=== PATIENT | female | born 1975 | race Caucasian/White ===

== ENCOUNTER 2020-04-05 05:39 | Outpatient (CLI) | payer OTHER, SELFPAY ==
[2020-04-05 18:35] LABS: SARS-CoV-2 RNA PCR Negative
== END 2020-04-05 05:40 | disposition home or self-care (01) ==
LOC: ANHCOVIDDT 05:40
PROVIDERS: Visit Provider Surgery Plastic and Reconstructive Surgery
DX: Z01.818 Encounter for other preprocedural examination (principal); Z11.59 Encounter for screening for other viral diseases
CPT/HCPCS: 87635; U0003

== ENCOUNTER 2020-04-08 01:04 | Day surgery (SDC) | payer OTHER, SELFPAY ==
[2020-04-05 15:53] VITALS: BMI 22.3
[2020-04-08] VITALS (9 sets, daily range): BP systolic 107–149; BP diastolic 57–83; PULSE 80–105; RESP 15–20; TEMP 36.2–37.2; O2SAT 96–100
[2020-04-08] MEDS: LACTATED RINGERS 1,000 ML 30 ML IV CONT ×2 (09:35→13:18)
--- NOTE | 2020-04-08 09:36 | WPDANESEPPF ---
Anes - Initial Pre Proc Eval Procedure: Operation Date: 04/08/20 11:30 Proposed Procedures p Bilateral Breast Implant Exchange With Capsulectomy - Shan Campuzano MD Date/Time: 04/08/20 09:36 Surgeon: Shan Campuzano MD Pre Op Diagnosis: Hx Breast Augmentation Patient Data Age: 44 Gender: F Height: 5 ft 4 in Weight: 59 kg Allergies Allergy/AdvReac Type Severity Reaction Status Date / Time No Known Allergies Allergy Mild Verified 04/05/20 15:47 Home Medications Medication Instructions Recorded Confirmed Type carisoprodol 350 mg tablet 350 mg PO TID PRN #21 tablet 04/05/20 04/05/20 Rx desvenlafaxine succinate 50 mg PO DAILY 04/05/20 04/05/20 History docusate sodium 100 mg capsule 100 mg PO DAILY #14 cap 04/05/20 Rx ondansetron HCl 4 mg tablet 4 mg PO Q8H #28 tablet 04/05/20 Rx oxycodone-acetaminophen 5 mg-325 1 tablet PO Q6H PRN #15 tablet 04/05/20 04/05/20 Rx mg tablet topiramate 300 mg PO DAILY 04/05/20 04/05/20 History topiramate 350 mg PO HS 04/05/20 04/05/20 History Patient hx anesthesia problems: none Family hx anesthesia problems: none [facility] Social History Social History Smoking status: Never smoker Alcohol intake: never Anes - Eval Final PreProcedure Day of Procedure 04/08/20 09:36 Patient weight: normal Heart: regular rate and rhythm Lungs: clear to auscultation Airway: Mallampati scale class II Neurological: alert and oriented Last oral intake: >/= 8 hours ASA classification: II Emergent: no Anesthesia type and monitoring: general LMA and standard monitoring Other findings: TIVA Informed Consent: The patient's anesthetic plan and its attendant risks and benefits were discussed with the patient/family/POA. Questions were solicited and answers provided to the satisfaction of the patient/family/POA.
--- NOTE | 2020-04-08 10:20 | WPDHPUPDATE1 ---
History and Physical Update Update Date/Time: 04/08/20 10:20 History and Physical has been reviewed, including an updated exam of the patient. There are NO changes in the patient's condition. Risks, benefits, and alternatives have been discussed and questions answered. Patient agrees to proceed with procedure.
--- NOTE | 2020-04-08 10:55 | PM.PROC ---
Procedure Note - Detailed Date of procedure: 04/08/20 Pre-op diagnosis: Hx Breast Augmentation Post-op diagnosis: same Procedure performed: Bilateral breast implant exchange with capsulectomy Description of procedure: Preoperatively the risks, benefits, alternatives were discussed in extensive detail. Made sure answered all of her questions to her satisfaction. We discussed final implant size selection and she understands I can never guarantee the final size. This was a lengthy conversation again today making sure she is making the right choice for her. She would like proceed. Patient was taken to the operating room placed supine on the operating table. Anesthesia was provided by anesthesiology and prepped and draped in a standard sterile fashion. Surgical time-out was taken. Tegaderm nipple Pan were placed. 1% lidocaine and 0.25% Marcaine with epinephrine was used anesthetize as a field block. A 15 blade used to excise the previous IMF scar. Dissection was continued down until the capsule was identified elevated completely around the capsule to remove the entire capsule. The implant was removed as well as the capsule. We did send the capsule to pathology. I incised the pectoralis major along its inferior border. Created a subpectoral pocket the appropriate dimensions. I then copiously irrigated with saline solution on TUR tubing. This 1500 cc per side for a total volume of 3 L. I reapproximated the muscle to the breast tissue on the subglandular plane using 2-0 Vicryl to help prevent implant migration into this space. I irrigated copiously with triple antibiotic Betadine containing solution. Wash my gloves. Used a funnel. A toe-touch technique the implant was introduced into the pocket. I closed using 2-0 Vicryl followed by 3-0 Monocryl in a running subcuticular 4-0 Monocryl and tissue glue. Fluffs and a surgical bra were placed. Patient was woken taken the PACU without difficulty. All instrument sponge counts were correct at the end of the case. Implants: Natrelle Inspira Soft Touch Silicone Implants 495cc Right: REF# [id number] SN# [id number] Left: REF# [id number] SN# [id number] Anesthesia: GLMA Surgeon: Shan Campuzano MD Estimated blood loss (mL): 20 Drains: No Packing: No Pathology: yes (Bilateral breast capsules) Complications: No immediate complications Condition: stable Disposition: PACU Findings: Capsule sent to pathology from previous textured implants. No atypical findings. No seroma. changed to submuscular plane.
[2020-04-08] MEDS: ceFAZolin 2 GM/D5W 50 ML 2 GM/50 ML BAG IVPB (11:02)
[2020-04-08] MEDS: LIDO 1%/EPINEPHRINE 1:100,000 20 ML VIAL 30 ML INFILTRATE (11:40)
[2020-04-08 11:47] LABS: Urine Cotinine NEGATIVE
--- NOTE | 2020-04-08 13:07 | SUR.OPER ---
EBL:20cc
--- NOTE | 2020-04-13 15:45 | PM.IMHP ---
H&P: HPI History of Present Illness Chief complaint: Hx Breast Augmentation Narrative: Idalia Chang is a 44 year old female who is here for bilateral breast augmentation. She would like proceed. Review of Systems Review of Systems: All systems reviewed & are unremarkable except as noted in HPI and below [facility] Social History Social History Smoking status: Never smoker Alcohol intake: never Meds Home Medications and Allergies Home Medications Medication Instructions Recorded Confirmed Type carisoprodol 350 mg tablet 350 mg PO TID PRN #21 tablet 04/05/20 04/08/20 Rx desvenlafaxine succinate [Pristiq] 50 mg PO DAILY 04/05/20 04/08/20 History docusate sodium 100 mg capsule 100 mg PO DAILY #14 cap 04/05/20 04/08/20 Rx ondansetron HCl 4 mg tablet 4 mg PO Q8H #28 tablet 04/05/20 04/08/20 Rx oxycodone-acetaminophen 5 mg-325 1 tablet PO Q6H PRN #15 tablet 04/05/20 04/08/20 Rx mg tablet topiramate 300 mg PO DAILY 04/05/20 04/08/20 History topiramate 350 mg PO HS 04/05/20 04/08/20 History Allergies Allergy/AdvReac Type Severity Reaction Status Date / Time No Known Allergies Allergy Mild Verified 04/08/20 09:40 Exam Narrative: Exam Narrative: Bilateral breast exam no masses palpable. Const: General: comfortable, no acute distress, alert and awake; No acute distress Orientation/consciousness: oriented to person HENMT: Head: normal to inspection Ears: external ears normal General nose exam: Normal external nose present Face and sinus: normal facial exam Eyes: General: appearance normal, both eyes and all related structures Periorbital: periorbital findings normal Eyelids: eyelids normal Conjunctivae: conjunctivae normal Neck: Neck: normal visual inspection Chest: Chest palpation & inspection: normal inspection of the chest Resp: Effort & Inspection: normal respiratory effort and able to speak in complete sentences GI: Inspection: normal to inspection Neuro: General: oriented to person Psych: Appearance: grossly normal Mental Status: mental status grossly normal Assessment and Plan Assessment and plan (1) Micromastia: Code(s): N64.82 - Hypoplasia of breast Status: Acute Assessment and Plan: She would like proceed with bilateral implant exchange for silicone, submuscular (dual plane), soft touch implants. She would send the capsule to pathology, she understands this is at her cost. We spent extensively making sure we are in full agreement of final implant size. She understands I can never guarantee bra size. She would like proceed. Risks, benefits, alternatives were discussed in extensive detail. I want to be very realistic about the risks involved as well as expectations. Reviewed consent in detail. Made sure identified asymmetries and pointed out limitations of the procedure. Discussed aftercare and what to monitor for. Made sure I answered all questions answered to satisfaction and consent obtained. (2) History of breast augmentation: Code(s): Z98.82 - Breast implant status Status: Acute
== END 2020-04-08 15:29 | disposition home or self-care (01) ==
PROVIDERS: Visit Provider Surgery Plastic and Reconstructive Surgery
PROC: (CPT 19342; principal; 2020-04-08 11:30)
DX: Z41.1 Encounter for cosmetic surgery (principal); N64.82 Hypoplasia of breast; Z98.82 Breast implant status
CPT/HCPCS: 19340; 19328; 36415; 80307; 88304; J0690; J1100; J1580; J2250; J2405; J2704; J3010; J7120

== ENCOUNTER 2021-11-29 09:34 | Emergency (ER) | payer BC, SELFPAY ==
[2021-11-29 10:34] VITALS: BP 121/72; PULSE 103; RESP 16; TEMP 37; O2SAT 99
[2021-11-29 10:39] VITALS: BP 121/72; PULSE 103; RESP 16; TEMP 37; O2SAT 99
--- NOTE | 2021-11-29 11:03 | ED.URI ---
HPI - URI/Sore Throat General Chief Complaint: Upper Respiratory Infection Stated Complaint: sore throat Time Seen by Provider: 11/29/21 11:04 Source: patient Mode of arrival: ambulatory Limitations: no limitations History of Present Illness HPI Narrative: Idalia Chang is a 46-year-old female with PMH of depression who comes to [facility] with complaints of severe sore throat low-grade fever and feeling poorly that started on Saturday. States her throat hurts so badly it is hard for her to drink anything much less eating anything. No nausea vomiting or diarrhea, highest fever has been 100.4 this morning was 99.6 Related Data Home Medications Medication Instructions Recorded Confirmed desvenlafaxine succinate [Pristiq] 50 mg PO DAILY 04/05/20 04/08/20 topiramate 300 mg PO DAILY 04/05/20 04/08/20 topiramate 350 mg PO HS 04/05/20 04/08/20 Allergies Allergy/AdvReac Type Severity Reaction Status Date / Time No Known Allergies Allergy Mild Verified 06/26/21 09:11 Review of Systems Review of Systems: CONSTITUTIONAL: Denies fever, chills, sweats. EYES: Denies visual changes, redness, discharge. ENT: Denies rhinorrhea, has congestion, has sore throat, otalgia. CARDIOVASCULAR: Denies chest pain, palpitations, edema. RESPIRATORY: Denies dyspnea, wheezing, has cough GASTROINTESTINAL: Denies abdominal pain, nausea, vomiting, diarrhea. GENITOURINARY: Denies dysuria, hematuria, abnormal discharge SKIN: Denies rash or itching. NEUROLOGIC: Denies numbness, or focal weakness. PSYCHIATRIC: Denies anxiety or depression. PMFSH Past Medical History Medical History Depression Social History Social History Smoking status: Never smoker Alcohol intake: never Comments At time of signature, I agree with nursing past medical, surgical, social and family history. There is no relevant family history pertinent to the presenting complaint. Exam Narrative: GENERAL: This is a well-nourished, well-developed patient, in mild distress. HEAD: normocephalic, atraumatic. EYES:Sclera clear/white. Vision is grossly intact. EARS: External ears normal, auditory canals clear and without drainage, TMs normal without perforation. Hearing grossly intact. NOSE: External nose normal with nasal discharge, nares without redness, has rhinorrhea. THROAT: Mucous membranes moist, posterior pharynx erythema NECK: Neck supple, non-tender CARDIOVASCULAR: Tachycardic rate and rhythm without murmurs, gallops, or rubs. RESPIRATORY: Clear to auscultation. Breath sounds equal bilaterally. No wheezes, rales, or rhonchi. GASTROINTESTINAL: Abdomen soft, SKIN: warm, intact with no suspicious lesions or rash, good texture and turgor. NEURO: awake, alert, and oriented to person, place and time. There were no obvious focal neurologic abnormalities. Steady gait EXTREMITIES: Normal range of motion. BACK: Nontender without deformity Course Course Emergency Course: Patient comes with severe sore throat and low-grade fever since Saturday Strep test negative Covid testnegative Flu testpositive for A Started on viscous lidocaine, prednisone, use throat lozenges and use [id number] Tylenol or ibuprofen for fever and pain control Level of Care: Express Care Visit Vital Signs Vital signs: Vital Signs Temperature 98.6 F 11/29/21 10:34 Pulse Rate 103 H 11/29/21 10:34 Respiratory Rate 16 11/29/21 10:34 Blood Pressure 121/72 11/29/21 10:34 Pulse Oximetry 99 11/29/21 10:34 Temperature 98.6 F 11/29/21 10:39 Pulse Rate 103 H 11/29/21 10:39 Respiratory Rate 16 11/29/21 10:39 Blood Pressure 121/72 11/29/21 10:39 Pulse Oximetry 99 11/29/21 10:39 MDM - URI/Sore Throat Lab Data Labs: Lab Results 11/29/21 Range/Units 10:55 POC SARS CoV-2 Ag Negative (Negative) Influenza A Screen Positive
== END 2021-11-29 12:10 | disposition home or self-care (01) ==
PROVIDERS: Emergency Provider Nurse Practitioner
DX: J10.1 Influenza due to other identified influenza virus with other respiratory manifestations (principal); Z20.822 Contact with and (suspected) exposure to COVID-19
CPT/HCPCS: 87081; 87426; 87804; 87880; 99213; C9803; G0463

== ENCOUNTER 2025-11-10 10:35 | Outpatient (CLI) | payer BC, SELFPAY ==
--- NOTE | ~2025-11-10 | CT_ITS ---
EXAM/PROCEDURE: CT abdomen pelvis w con HISTORY: Diarrhea, abdominal pain COMPARISON: None available. TECHNIQUE: IV contrast enhanced CT of the abdomen and pelvis performed FINDINGS: Other than minimal fibrotic appearing changes in the lung bases, the lung bases are clear and heart size normal. Partially visualized bilateral breast implants. In the abdomen and pelvis, the bowel gas pattern is nonobstructive with no free air free fluid or pneumatosis. Several loops of fluid-filled small bowel are present. Mild wall thickening in the small bowel may be present. The large bowel is unopacified and nondistended. Small to moderate amount of stool extends to the cecum. 3 mm nonobstructing lower pole right kidney stone. No hydroureteronephrosis, obstructing ureteral stones. No urinary bladder stones. The urinary bladder appears normal for technique. Evaluation of intestinal wall pattern somewhat limited absent enteric contrast. No grossly inflamed appendix. Gallbladder spleen pancreas stomach and liver appear normal. No bulky mesenteric or retroperitoneal lymphadenopathy or masses. Anteverted uterus and adnexal regions unremarkable. No bulky mesenteric or retroperitoneal lymphadenopathy or masses. Advanced degenerative disc changes at L5-S1. IMPRESSION: Limited evaluation of the small and large bowel with possible mild diffuse small bowel thickening. Fluid-filled loops of bowel could also be associated with inflammatory or infectious enteritis. No acute surgical abnormality identified. Reviewed, dictated and finalized at location A. OPTIST IMPRESSION: Limited evaluation of the small and large bowel with possible mild diffuse smal l bowel thickening. Fluid-filled loops of bowel could also be associated with i nflammatory or infectious enteritis. No acute surgical abnormality identified.
== END 2025-11-10 10:36 | disposition home or self-care (01) ==
LOC: MICIMG 10:36
PROVIDERS: PCP Internal Medicine Rheumatology; Visit Provider Internal Medicine Rheumatology
DX: R19.7 Diarrhea, unspecified (principal); R10.9 Unspecified abdominal pain
CPT/HCPCS: 74177; Q9967